=== PATIENT | female | born 1985 | race Caucasian/White ===

== ENCOUNTER 2016-05-19 11:21 | Outpatient (CLI) | payer MEDICAID ==
[~2016-05-19] VITALS: Ht 154.9 cm; Wt 65.1 kg
[2016-05-19 11:50] VITALS: BP 114/71; PULSE 81
[2016-05-19 12:01] VITALS: Ht 154.9 cm; Wt 65.1 kg
[2016-05-19 12:02] VITALS: BP 114/71; PULSE 81; RESP 18
[2016-05-19 12:03] VITALS: RESP 18
[2016-05-19 12:05] VITALS: BP 107/71; PULSE 76
--- NOTE | 2016-05-19 12:21 | RADRPT ---
PROCEDURE: OB ultrasound for biophysical profile CLINICAL INDICATION: Poor growth TECHNIQUE: Multiple sonographic images of the pelvis were obtained. Transabdominal view of the gr avid uterus are available for review. The images were reviewed on a PACS workstation. COMPARISON: None FINDINGS: breathing movement = 2/2 tone = 2/2 motion = 2/2 JAMES = 2/2 JAMES = 15.0 cm Single live intrauterine with cardiac activity. heart rate equals 150 beats p er minute. Presentation is cephalic. The placenta is posterior. IMPRESSION: 1. Single viable intrauterine gestation. 2. Biophysical profile = 8. 3. JAMES = 15.0 cm. RPTAT: KK .Thro Lisa MD, MD Date Time Electronically viewed and signed by .Thor Lisa MD, MD on 05/19/2016 12:21 .B/
--- NOTE | 2016-05-19 12:23 | RADRPT ---
PROCEDURE: US OB - Limited weight. CLINICAL INDICATION: Poor growth. TECHNIQUE: Multiple sonographic images of the pelvis were obtained. Transabdominal imaging only w as performed. The images were reviewed on a PACS workstation. COMPARISON: No prior studies are available for comparison. FINDINGS: There is a single viable intrauterine gestation. Cardiac activity is present with 146 beats per min rio. There is a cephalic presentation. Measurements were made in order to determine age. The results are as follows: BPD = 8.67 cm HC = 30.54 cm AC = 32.7 cm FL = 6.56 .cm Estimated gestational age of approximately 34 weeks 6 days +/ - 2 weeks 3 days by ultrasound evalua tion. The estimated date of delivery is 06/24/2016 by ultrasound evaluation. The EFW = 2679 g +/- 401.9 g by ultrasound evaluation (81.2%). The placenta is posterior. IMPRESSION: 1. Single viable intrauterine gestation of approximately 34-week 6 days gestation with estimated da te of delivery of 06/24/2016.. 2. The estimated weight is 2679 g (81%) . RPTAT: KK .Thor Lisa MD, MD Date Time Electronically viewed and signed by .Thor Lisa MD, MD on 05/19/2016 12:23 .B/
[2016-05-19 13:05] LABS: ADD UMIC NO; URINE BILIRUBIN (Dip) NEGATIVE (NEGATIVE); URINE BLOOD (Dip) NEGATIVE (NEGATIVE); URINE COLOR LT. YELLOW (YELLOW); URINE GLUCOSE (Dip) NEGATIVE (NEGATIVE); URINE KETONES (Dip) NEGATIVE (NEGATIVE); URINE LEUKOCYTE ESTERASE (Dip) NEGATIVE (NEGATIVE); URINE NITRITE (Dip) NEGATIVE (NEGATIVE); URINE TOTAL PROTEIN (Dip) NEGATIVE (NEGATIVE); URINE UROBILINOGEN (Dip) 0.2 E.U./dL (0.1-1.0)
--- NOTE | 2016-05-19 15:51 | TRIAGE ---
OB Triage Datetime Report Generated by CPN: 05/19/2016 15:51 Datetime: 05/19/2016 13:29 Labor Evaluation Frequency: 3-5 Monitor Mode: External Duration (sec)2399: 40-50 Quality: Mild Pattern: Normal: <= 5 Contractions in 10 Minutes Resting Tone [place]: Relaxed Heart Rate FHR Baseline Rate: 125 Monitor Mode: External US FHR Baseline Changes: No Baseline Change Variability: Moderate 6-25 bpm Accelerations: 15X15 Decelerations: None Category: Category I Datetime: 05/19/2016 12:52 Labor Evaluation Frequency: 3-4 Monitor Mode: External Duration (sec)2399: 40-50 Quality: Mild Pattern: Normal: <= 5 Contractions in 10 Minutes Resting Tone [place]: Relaxed Heart Rate FHR Baseline Rate: 140 Monitor Mode: External US FHR Baseline Changes: No Baseline Change Variability: Moderate 6-25 bpm Accelerations: 15X15 Decelerations: None Category: Category I Datetime: 05/19/2016 12:19 EGA: 35.0 Datetime: 05/19/2016 12:07 Time of Arrival: 05/19/2016 11:14 EGA: 35.0 Arrived By: Ambulatory Arrived From: Office Chief Complaint: R/O IUGR Movement: Present Contractions: Denies/Absent Contractions: 0 Rupture of Membranes: Denies Vaginal Bleeding: None Vaginal Discharge: Denies Recent Sexual Intercouse: Denies Abdominal Trauma: Not Applicable Patient Complaints: None Time Provider Notified: 05/19/2016 12:07 Provider Notified: GHAYOORI Datetime: 05/19/2016 12:03 Stage of : OB Triage Maternal Assessment Level of Consciousness: Fully Conscious DTR's/Clonus: DTRs 2+; No Clonus Headache: Denies Blurred Vision: No Respiratory Effort: Unlabored Breath Sounds, Left: Clear and Equal Breath Sounds, Right: Clear and Equal Nausea/Vomiting: Denies RUQ Epigastric Pain: Denies Facial Edema: None Labor Evaluation Frequency: 0 Monitor Mode: External Duration (sec)2399: 0 Resting Tone Moraine: Relaxed Heart Rate FHR Baseline Rate: 130 Monitor Mode: External US FHR Baseline Changes: No Baseline Change Variability: Moderate 6-25 bpm Accelerations: 15X15 Decelerations: None Category: Category I Pain Assessment Pain Scale: 0 Pain Presence: None/Denies Pain Type: N/A Pain Goal: 0 Vaginal Exam Membrane Status: Intact Vaginal Bleeding: None
--- NOTE | 2016-05-19 19:40 | QN ---
Documentation Comment 31-year-old with IUP at 35 weeks with care with Dr. Khalif ma and ANDREW: June 23, 2016 was sent from the clinic for rule out IUGR. Patient denies any leaking of fluid vaginal bleeding or contractions or decreased movement. General appearance: Alert and oriented 4 and not in acute distress. Abdomen: Soft, nontender no rebound tenderness no guarding no rigidity. Fundal height consistent with gestational age. NST category 1 BPP 11/23 JAMES: 15 PROCEDURE: OB ultrasound for biophysical profile CLINICAL INDICATION: Poor growth TECHNIQUE: Multiple sonographic images of the pelvis were obtained. Transabdominal view of the gravid uterus are available for review. The images were reviewed on a PACS workstation. COMPARISON: None FINDINGS: breathing movement = 2/2 tone = 2/2 motion = 2/2 JAMES = 2/2 JAMES = 15.0 cm Single live intrauterine with cardiac activity. heart rate equals 150 beats per minute. Presentation is cephalic. The placenta is posterior. IMPRESSION: 1. Single viable intrauterine gestation. 2. Biophysical profile = 11/23. 3. JAMES = 15.0 cm. RPTAT: KK .Thor Lisa MD, MD Date Time Electronically viewed and signed by .Thor Lisa MD, MD on 2016 12:21 Vaginal examination closed and long Patient was noted to have contractions every 3-4 minutes. After observation repeat vaginal exam did not show any cervical change. EFW 81 percentile equals 2679 g. Assessment: IUP at 35 weeks No clear evidence of IUGR. testing reassuring. Estimated weight 85 percentile. No evidence of labor. Cervical exam did not show any change. Patient was discharged home with strict labor precautions and kick count and close follow-up in 3 days with the office Return back to triage if she has any leaking of fluid, vaginal bleeding, decreased movement or contractions or any other concerns. Patient verbalized understanding. JAIDEN HARVEY MD May 19, 2016 19:40
== END 2016-05-19 15:59 | disposition home or self-care (01) ==
LOC: OBT 11:21 → L-D 11:28 → OBT 15:59
PROVIDERS: ATTEND Obstetrics & Gynecology
DX: O26.893 Other specified pregnancy related conditions, third trimester (principal); Z3A.35 35 weeks gestation of pregnancy
CPT/HCPCS: 76815; 76818; 81003; Z7500; G0463

== ENCOUNTER 2016-06-14 15:11 | Inpatient (IN) | payer MEDICAID ==
[~2016-06-14] VITALS: Ht 152.4 cm; Wt 67.5 kg
[2016-06-14 15:18] VITALS: Ht 152.4 cm; Wt 67.5 kg
--- NOTE | 2016-06-14 16:09 | RADRPT ---
PROCEDURE: US OB. CLINICAL INDICATION: Size and dates , IUGR TECHNIQUE: Multiple sonographic images of the pelvis and gravid uterus were obtained. The images were reviewed on a PACS workstation. COMPARISON: 05/19/2016 FINDINGS: There is a single viable intrauterine gestation. Cardiac activity is present with 114 beats per min lummi. There is a vertex presentation. The placenta is fundal. There is no evidence for an abruption or placenta previa. Measurements were made in order to determine age. The results are as follows: BPD =9.2 cm HC =32.1 cm AC =33.5 cm FL =7.2 cm Estimated gestational age of approximately 37 weeks and 0 days based on ultrasound measurements. Clinical age: 37 weeks and 6 days. The estimated date of delivery is 07/05/16, based on ultrasound measurements. The EFW = 3136 g, 43%, based on LMP age. RPTAT: AA IMPRESSION: Single viable intrauterine gestation of approximately 37 weeks and 0 days based on ultrasound measu rements. .Usama Delgado MD, Date Time Electronically viewed and signed by .Usama Delgado MD, on 06/14/2016 16:09 .S/
--- NOTE | 2016-06-14 16:26 | RADRPT ---
PROCEDURE: US OB biophysical profile. CLINICAL INDICATION: decreased movements, IUGR TECHNIQUE: Multiple sonographic images of the pelvis were obtained. The images were reviewed on a PACS workstation. COMPARISON: 05/19/16 FINDINGS: There is a single viable intrauterine gestation. Cardiac activity is present with 142 beats per min rio. There is a vertex presentation. The placenta is fundal. There is no evidence of placental abruption. There is a normal amount of amniotic fluid with an JAMES = 8.4 cm. Biophysical profile: movement 2/2 tone 2/2. breathing 2/2 JAMES 2/2 Total 11/23 RPTAT: AA . IMPRESSION: Normal biophysical profile. . .Usama Delgado MD, MD Date Time Electronically viewed and signed by .Usama Delgado MD, MD on 06/14/2016 16:26 .S/
[2016-06-14] MEDS ORDERED: PRENAT PO (17:25)
[2016-06-14 17:58] LABS: ADD SCAN DIFF NO
[2016-06-14 17:59] VITALS: BP 132/72; PULSE 81; RESP 20
[2016-06-14] MEDS ORDERED: MISOPROSTOL 200 MCG TAB PR PRN (18:00)
[2016-06-14] MEDS ORDERED: OXYTOCIN 30 UNITS/LR 500 ML IV PRN ×2 (18:00→19:30)
[2016-06-14] MEDS ORDERED: CARBOPROST 250 MCG INJ IM PRN (18:00)
[2016-06-14] MEDS ORDERED: METHYLERGONOVINE 0.2 MG INJ IM PRN ×2 (18:00→19:30)
[2016-06-14] MEDS ORDERED: LIDOCAINE 1% (MPF) 30 ML INJ INJ PRN (18:00)
[2016-06-14 18:01] LABS: BASOPHILS % 0.2 % (0.0-2.0); EOSINOPHILS # 0.1 10^3/ul (0.0-0.5); EOSINOPHILS % 0.4 % (0.0-7.0); HEMATOCRIT 39.6 % (37.0-47.0); HEMOGLOBIN 13.4 g/dl (12.0-16.0); LYMPHOCYTES # 2.2 10^3/ul (0.8-2.9); LYMPHOCYTES % 17.9 % (15.0-51.0); MEAN CORPUSCULAR HEMOGLOBIN 30.7 pg (29.0-33.0); MEAN CORPUSCULAR HGB CONC 33.8 g/dl (32.0-37.0); MEAN CORPUSCULAR VOLUME 90.8 fl (82.0-101.0); MEAN PLATELET VOLUME 11.1 fl (7.4-10.4); MONOCYTE # 0.7 10^3/ul (0.3-0.9); MONOCYTES % 5.6 % (0.0-11.0); NEUTROPHIL # 9.2 10^3/ul (1.6-7.5); NEUTROPHILS % 75.4 % (39.0-77.0); PLATELET COUNT 255 10^3/UL (140-415); RED BLOOD COUNT 4.36 10^6/ul (4.20-5.40); RED CELL DISTRIBUTION WIDTH 12.6 % (11.5-14.5); WHITE BLOOD COUNT 12.2 10^3/ul (4.8-10.8)
[2016-06-14] MEDS: LACTATED RINGER'S 1,000 ML IV SCH ×2 (18:02→23:47)
[2016-06-14 18:05] LABS: INR 0.91; PROTIME 12.3 Sec (12.2-14.2)
[2016-06-14] MEDS ORDERED: OXYTOCIN 30 UNITS/LR 500 ML IV SCH ×2 (18:30→19:30)
[2016-06-14] MEDS ORDERED: IBUPROFEN 600 MG TAB PO PRN (19:30)
[2016-06-14] MEDS ORDERED: BUTORPHANOL 2 MG INJ IV PRN ×2 (19:30)
[2016-06-14] MEDS ORDERED: LACTATED RINGER'S 1,000 ML IV PRN (23:00)
[2016-06-15] MEDS: LACTATED RINGER'S 1,000 ML IV SCH ×3 (07:33→23:49)
--- NOTE | 2016-06-15 08:40 | RADRPT ---
PROCEDURE: Limited OB ultrasound CLINICAL INDICATION: position TECHNIQUE: Sonographic evaluation to assess the position was performed. Transabdominal imag ing of the gravid uterus was performed. COMPARISON: OB ultrasound dated 06/14/2016 FINDINGS: There is a single live intrauterine with a heart rate of 146 bpm. position is cephalic. The placenta is posterior. IMPRESSION: Cephalic presentation. RPTAT: HH .Laura Herr MD, MD Date Time Electronically viewed and signed by .Laura Herr MD, on 06/15/2016 08:40 .G/
[2016-06-15] MEDS ORDERED: LACTATED RINGER'S 1,000 ML IV SCH (18:39)
[2016-06-15] MEDS ORDERED: ONDANSETRON 4 MG INJ ONE (18:42)
[2016-06-15] MEDS ORDERED: CITRIC ACID/NA CITRATE 30 ML CUP ONE (18:42)
[2016-06-15] MEDS ORDERED: LACTATED RINGER'S 1,000 ML IV ONE (18:45)
[2016-06-15] MEDS ORDERED: OXYTOCIN 30 UNITS/LR 500 ML IV PRN (19:00)
[2016-06-15] MEDS ORDERED: METHYLERGONOVINE 0.2 MG INJ IM PRN (19:00)
[2016-06-15] MEDS ORDERED: CARBOPROST 250 MCG INJ IM PRN (19:00)
[2016-06-15] MEDS ORDERED: ONDANSETRON 4 MG INJ IV ONE (19:00)
[2016-06-15] MEDS ORDERED: MISOPROSTOL 200 MCG TAB PR PRN (19:00)
[2016-06-15] MEDS ORDERED: CEFAZOLIN 2 GM/50 ML (PMX) 50 ML IV SCH (19:00)
[2016-06-15] MEDS ORDERED: CITRIC ACID/NA CITRATE 30 ML CUP PO ONE (19:00)
[2016-06-15] MEDS ORDERED: NALOXONE (0.4 MG/ML) INJ IV PRN (19:30)
[2016-06-15] MEDS ORDERED: DIPHENHYDRAMINE 50 MG INJ IV PRN (19:30)
[2016-06-15] MEDS ORDERED: HYDROmorphONE 1 MG/ML SYG IV PRN ×2 (19:30)
[2016-06-15] MEDS ORDERED: ONDANSETRON 4 MG INJ IV PRN (19:30)
[2016-06-15] MEDS ORDERED: PROCHLORPERAZINE 10 MG INJ IV PRN (19:30)
[2016-06-15] MEDS ORDERED: FENTAnyl 50 MCG/ML VIAL ONE (19:57)
[2016-06-15] MEDS ORDERED: morphine SULFATE/PF (10 MG/10 ML) INJ ONE (19:58)
[2016-06-15] MEDS ORDERED: METOCLOPRAMIDE 10 MG INJ ONE (20:10)
--- NOTE | 2016-06-15 20:12 | HP ---
Date/Time of Note Date/Time of Note DATE: 06/15/16 TIME: 20:07 OB - History Hx of Present Free Text/Dictation 38+wks GA admitted through the triage for 2-3 mins Decel and some variables In early labor,The decision was made to admit the patient and augment her labor Patient Progressed to 5-6 cm,Develoved variables and couple of 2 min decels. At the time of the evaluation Patient was extensively discussed about her options to have a vaginal delivery vs c/section and risks and benefits of each( through the jd edwards consultant) Patient's questions was extensively answered and her concerns were addressed.Patient declines further trial of labor and desires to have a Primary c/section : 2 Para: 0 Care: Good Care Ultrasounds: Normal mid trimester US Obstetrical Complications: None Medical Complications: None Past Family/Social History * Past Medical, Surgical, Family and Obstetric Histories reviewed from chart. OB Admission Exam Vital Signs Vital Signs Vital Signs Date Time Temp Pulse Resp B/P Pulse Ox O2 Delivery O2 Flow Rate FiO2 06/14/16 17:59 98.0 81 20 132/72 98 Room Air Physical Exam Abdomen: WNL Extremities: Normal Reflexes: Normal Cervical Dilatation: 5cm Effacement: 100% Station: -1 Membranes: Ruptured Amniotic Fluid: Thin Meconium Heart Rate: 140's Accelerations: Accelerations Present Decelerations: Variable Decelerations Varibility: Moderate Contractions on Admission: < 5 Minutes Apart Last 72 hours Lab Results CBC & BMP 06/14/16 17:20 OB Assessment/Plan Reason for admission: observation Plan: Section Other plan: At the time of the evaluation Patient was extensively discussed about her options to have a vaginal delivery vs c/section and risks and benefits of each( through the jd edwards consultant) Patient's questions was extensively answered and her concerns were addressed.Patient declines further trial of labor and desires to have a Primary c/section JOHN MAYFIELD M.D. Jun 15, 2016 20:12
--- NOTE | 2016-06-15 20:13 | OPR ---
Operative Report Planned Procedure Free Text/Dictation Category 2 tracing .Remote from delivery At the time of the evaluation Patient was extensively discussed about her options to have a vaginal delivery vs c/section and risks and benefits of each( through the wharfinger chief) Patient's questions was extensively answered and her concerns were addressed.Patient declines further trial of labor and desires to have a Primary c/section Procedure date Jun 15, 2016 Procedure(s) Primary c/section Performed by: JOHN MAYFIELD M.D. Assisting provider: AMARILYS JOHNSON MD Pre-procedure diagnosis Category 2 tracing .Remote from delivery At the time of the evaluation Patient was extensively discussed about her options to have a vaginal delivery vs c/section and risks and benefits of each( through the wharfinger chief) Patient's questions was extensively answered and her concerns were addressed.Patient declines further trial of labor and desires to have a Primary c/section Anesthesia Type: spinal Procedure Description Under satisfactory [] anesthesia, the patient was prepped and draped and placed in a supine position, tilted to the left. Pfannenstiel incision was made, carried through the subcutaneous tissue. Bleeders brought under control with electrocautery. Fascia incised to the length of the incision. Rectus muscles from the fascia, divided midline. Peritoneum exposed, entered through a transverse incision. Exploration of abdomen revealed gravid uterus. Bladder flap was developed. Transverse incision was made in the lower segment of the uterus. Amniotic sac ruptured. [] amniotic fluid noted. [] Nasal oropharyngeal suction was performed. The baby was handed to the team for immediate attention. The placenta was delivered manually intact. Uterine cavity was cleaned with wet sponge and drainage established. Uterus closed in 2 layers using [] in continuous fashion. Peritoneal cavity irrigated with warm saline. Sponge, needle and instrument count reported to be correct. Abdominal peritoneum closed with [] continuously. Rectus muscle approximated with []. Fascia closed with [], and skin closed withdermoband. Estimated blood loss [200] mL. Urine bag contained []mL of urine Post-Procedure Findings: Live Baby [], Apgars [] and [], weight [], position [], [] presentation []cord. Specimen removed: Yes Complications: None Pt Condition post procedure: stable Disposition: PACU Physician Certification I, the undersigned physician, hereby certify that I have discussed the procedure described in this consent form with this patient (or the patient's legal associate financial representative), including: * The risk and benefits of the procedure; * Any adverse reactions that may reasonably be expected to occur; * Any alternative efficacious methods of treatment which may be medically viable ; * The potential problems that may occur during recuperation; * Potential for blood transfusion and associated risks/benefits; and * Any research or economic interest I may have regarding this treatment. I further certify that the patient/legally responsible person was encouraged to ask question and that all questions were answered. JOHN MAYFIELD M.D. Jun 15, 2016 20:13
[2016-06-15 23:45] VITALS: BP 108/66; PULSE 63; RESP 19
[2016-06-16] VITALS (8 sets, daily range): BP systolic 102–120; BP diastolic 53–74; PULSE 60–86; RESP 18–20
[2016-06-16] MEDS ORDERED: MISOPROSTOL 200 MCG TAB PR PRN
[2016-06-16] MEDS ORDERED: METHYLERGONOVINE 0.2 MG INJ IM PRN
[2016-06-16] MEDS ORDERED: CARBOPROST 250 MCG INJ IM PRN
[2016-06-16] MEDS ORDERED: OXYTOCIN 30 UNITS/LR 500 ML IV PRN
[2016-06-16] MEDS ORDERED: LANOLIN 7 GM TUBE TOP PRN
[2016-06-16] MEDS: LACTATED RINGER'S 1,000 ML IV SCH ×3 (02:29→23:26)
[2016-06-16] MEDS: KETOROLAC 30 MG INJ IV PRN ×2 (03:49→15:43)
[2016-06-16 07:56] LABS: ADD SCAN DIFF NO
[2016-06-16 08:01] LABS: BASOPHILS % 0.3 % (0.0-2.0); EOSINOPHILS % 0.2 % (0.0-7.0); HEMATOCRIT 31.8 % (37.0-47.0); HEMOGLOBIN 10.8 g/dl (12.0-16.0); LYMPHOCYTES # 1.6 10^3/ul (0.8-2.9); LYMPHOCYTES % 14.5 % (15.0-51.0); MEAN CORPUSCULAR HEMOGLOBIN 30.6 pg (29.0-33.0); MEAN CORPUSCULAR VOLUME 90.1 fl (82.0-101.0); MEAN PLATELET VOLUME 10.5 fl (7.4-10.4); MONOCYTE # 0.8 10^3/ul (0.3-0.9); MONOCYTES % 7.2 % (0.0-11.0); NEUTROPHIL # 8.7 10^3/ul (1.6-7.5); NEUTROPHILS % 77.4 % (39.0-77.0); PLATELET COUNT 187 10^3/UL (140-415); RED BLOOD COUNT 3.53 10^6/ul (4.20-5.40); RED CELL DISTRIBUTION WIDTH 12.8 % (11.5-14.5); WHITE BLOOD COUNT 11.3 10^3/ul (4.8-10.8)
[2016-06-16] MEDS: MULTIVIT/MIN/FOLATE/IRON/PREN TAB PO SCH (09:00)
[2016-06-16] MEDS: SENNA/DOCUSATE NA (8.6MG/50MG) TAB PO SCH ×2 (09:16→22:43)
--- NOTE | 2016-06-16 09:17 | QN ---
Documentation Comment POD#1 is stable Afebrile No VB Adequate Urine +flatus VS stable Gen NAD Abd soft NT NDIncision intact Genitalia No blood at perinium --->Discharge plan tomorrow --->ambulation JOHN MAYFIELD M.D. Jun 16, 2016 09:17
[2016-06-17] MEDS: IBUPROFEN 600 MG TAB PO SCH ×4 (00:51→17:19)
[2016-06-17 04:00] VITALS: BP 129/80; PULSE 61; RESP 18
[2016-06-17] MEDS: LACTATED RINGER'S 1,000 ML IV SCH (07:49)
[2016-06-17] MEDS: MULTIVIT/MIN/FOLATE/IRON/PREN TAB PO SCH (08:13)
[2016-06-17] MEDS: SENNA/DOCUSATE NA (8.6MG/50MG) TAB PO SCH ×2 (08:14→21:13)
[2016-06-17] MEDS: OXYCODONE/ACETAMINOPHEN (5/325) TAB PO PRN ×2 (08:29→18:15)
[2016-06-17 08:30] VITALS: BP 119/81; PULSE 97; RESP 19
--- NOTE | 2016-06-17 10:27 | DS ---
Date/Time of Note Date/Time of Note DATE: 06/17/16 TIME: 10:26 Discharge Summary Admission/Discharge Info Admit Date/Time Jun 14, 2016 at 17:34 Discharge Date/Time 06/18/16 Final Diagnosis Repeat section Hospital Course uneventful Home Meds Reported Medications Multivit/Min/Fol Ac/Iron/Pren* ( S*) 1 Tab Tab, 1 TAB PO DAILY, TAB 06/14/16 JOHN MAYFIELD M.D. Jun 17, 2016 10:27
--- NOTE | 2016-06-17 10:29 | QN ---
Documentation Comment POD#2 is stable Afebrile No VB+BM+voids no sign of depression VS stable Gen NAD Abd soft NT NDIncision intact Genitalia No blood at perinium --->Discharge plan tomorrow --->ambulation JOHN MAYFIELD M.D. Jun 17, 2016 10:29
[2016-06-17] MEDS ORDERED: INFLUENZA VIRUS VACCINE 0.5 ML SYG IM* ONE (11:00)
[2016-06-17 16:35] VITALS: BP 113/75; PULSE 87; RESP 18
[2016-06-17 20:00] VITALS: BP 119/79; PULSE 85; RESP 18
[2016-06-18] MEDS: IBUPROFEN 600 MG TAB PO SCH ×4 (00:13→17:21)
[2016-06-18 03:30] VITALS: BP 115/79; PULSE 71; RESP 18
[2016-06-18 08:00] VITALS: BP 133/86; PULSE 67; RESP 20
[2016-06-18] MEDS ORDERED: DIPHTH/TET/ACEL PERTUSS (ADULT) 0.5 ML VIAL IM* ONE (09:00)
[2016-06-18] MEDS: SENNA/DOCUSATE NA (8.6MG/50MG) TAB PO SCH (09:37)
[2016-06-18] MEDS: MULTIVIT/MIN/FOLATE/IRON/PREN TAB PO SCH (09:37)
[2016-06-18 16:58] VITALS: BP 131/84; PULSE 82; RESP 16
== END 2016-06-18 18:29 | disposition home or self-care (01) | DRG 766 ==
LOC: L-D 15:11 → OBT 15:11 → L-D 17:17 → OBT 17:32 → L-D 17:34 → PP1 06-15 23:42
PROVIDERS: ADMIT Obstetrics & Gynecology; ATTEND Obstetrics & Gynecology
PROC: 10D00Z1 Extraction of Products of Conception, Low, Open Approach (ICD-10-PCS; principal; 2016-06-15 20:15)
DX: O60.14X0 Preterm labor third trimester with preterm delivery third trimester, not applicable or unspecified (principal); Z37.0 Single live birth; Z3A.38 38 weeks gestation of pregnancy
CPT/HCPCS: 76815; 76818; 85025; 85610; 85730; 86592; 86885; 86900; 86901; 90686; 90715; 94760; 99464; G0463; J0690; J1885; J2274; J2405; J2590; J2765; J3010; J7120